=== PATIENT | male | born 1995 | race African-American/Black ===

== ENCOUNTER 2023-06-11 20:16 | Emergency (ER) | payer BC, SELFPAY ==
--- NOTE | ~2023-06-11 | US_ITS ---
EXAMINATION: US scrotum doppler DATE: 06/11/2023 21:38 INDICATION: Right testicular pain and swelling TECHNIQUE: Testicular sonogram utilizing grayscale and Doppler COMPARISON: None. FINDINGS: The right testis measures 4.8 x 2.2 x 3.1 cm. The left testis measures 4.4 x 2.6 x 2.9 cm. There are multiple punctate calcifications in the testicles. There is a right inguinal hernia contain ing fat and bowel extending into the scrotum. There is a 2.9 x 1.5 x 2.0 cm fluid collection of the r ight inguinal region with a tract to the skin There is normal vascular flow to both testes. The right epididymis is normal with normal vascular flow. The left epididymis is normal with normal vascular f low. There is no varicocele or hydrocele. IMPRESSION: 1. Small subcutaneous abscess of the right inguinal region with a tract to the skin. 2. Large right internal hernia containing fat and bowel extending into the scrotum. Reviewed, dictated and finalized at location F. IMPRESSION: 1. Small subcutaneous abscess of the right inguinal region with a tract to the skin. 2. Large right internal hernia containing fat and bowel extending into the scro santos.
[2023-06-11 20:18] VITALS: BP 150/79; PULSE 82; RESP 14; TEMP 36.6; O2SAT 100
[2023-06-11 22:09] LABS: Appearance Urine Clear (Clear); Bacteria Urine None Seen /hpf; Bilirubin Urine Negative (Negative); Blood Urine Negative (Negative); Color Urine Yellow (Yellow); Glucose Urine UA Negative (Negative); Ketones Urine Negative (Negative); Leukocyte Esterase Ur 2+ LEU/UL (Negative); Nitrate Urine Negative (Negative); Non Pathogenic Casts 0-2; Protein Urine Negative (Negative); RBC Urine 0-2 /hpf (0-2); Specific Grav Ur 1.009 (1.001-1.035); Squamous Epithelial Cell Urine None seen /hpf (Few); Urobilinogen Urine 0.2 mg/dL (<2.0)
[2023-06-11 22:14] LABS: Add Urine Microscopic? YES
[2023-06-11 23:15] VITALS: BP 148/98; PULSE 74; RESP 18; TEMP 36.7; O2SAT 100
[2023-06-11] MEDS: LIDO 1%/EPINEPHRINE 1:100,000 20 ML VIAL INFILTRATE (23:31)
[2023-06-11] MEDS: Please add drug allergy info to patient profile. 1 EACH XX (23:32)
--- NOTE | 2023-06-11 23:32 | ED.SKABFB ---
HPI - Skin/Abscess/Foreign Bdy General Chief complaint: Skin/Abscess/Foreign Body Stated complaint: lump on testicle Time Seen by Provider: 06/11/23 21:04 Source: patient Mode of arrival: ambulatory Limitations: no limitations History of Present Illness HPI narrative: 28-year-old male presents today with complaints of a lump to his right groin. Patient states he noted it yesterday and has gotten bigger today. Denies any fever, body aches, chills. Denies any dysuria, testicle pain, painful ejection. Related Data Allergies Allergy/AdvReac Type Severity Reaction Status Date / Time No Known Allergies Allergy Verified 06/11/23 23:32 Review of Systems Review of Systems: All systems reviewed & are unremarkable except as noted in HPI and below Exam Const: General: cooperative, healthy appearing, comfortable, no acute distress and well developed Orientation/consciousness: patient oriented x3 HENMT: Head: normal to inspection Eyes: General: appearance normal, both eyes and all related structures Resp: Effort & Inspection: normal respiratory effort and able to speak in complete sentences Auscultation: clear to auscultation bilaterally Cardio: Rate: regular rate Rhythm: regular rhythm Heart sounds: S1 normal heart sound present and S2 normal heart sound present Skin: Other: Right groin with approximate 1-1/2 cm diameter abscess. Not fluctuant. No erythema noted. Neuro: General: patient oriented x3 Course Vital Signs Vital signs: Vital Signs Temperature 98 F 06/11/23 20:18 Pulse Rate 82 06/11/23 20:18 Respiratory Rate 14 06/11/23 20:18 Blood Pressure 150/79 H 06/11/23 20:18 Pulse Oximetry 100 06/11/23 20:18 Oxygen Delivery Room Air 06/11/23 20:18 Temperature 98.1 F 06/11/23 23:15 Pulse Rate 74 06/11/23 23:15 Respiratory Rate 18 06/11/23 23:15 Blood Pressure 148/98 H 06/11/23 23:15 Pulse Oximetry 100 06/11/23 23:15 Oxygen Delivery Room Air 06/11/23 20:18 Procedures Abscess I/D other: Date of Incision: 06/11/23 Time of Incision: 23:15 Side (if applicable): right Sedation/analgesia: none Local Anesthetic: lidocaine 1% and with epi Amount of anesthesia used (mL): 1 Technique: incised with #11 blade Amount of fluid expressed (mL): 5 Irrigation: Yes Packing used?: none I&D Results: Pus Abcess I&D Additional Comments: 1cm incision made with 11 blade. foul smelling purulent drainage. deloculated and irrigated. patient tolerated well. MDM - Skin/Abscess/Foreign Bdy MDM Narrative Medical decision making narrative: 28-year-old male HPI as noted. Work-up to include urinalysis, ultrasound of the scrotum, chlamydia/gonorrhea. Ultrasound noted with small subcutaneous abscess of the right inguinal region with a tract to the skin. Also noted is a right internal hernia. Patient denies any testicle pain but area of pain is where the abscess is noted. Abscess drained without difficulty and as noted in chart. Patient tolerated well. Discharge home with antibiotics and follow-up with primary care. Differential Diagnosis Differential diagnosis: Likely abscess of skin or subcutaneous tissue, cellulitis and other (Hernia, testicular torsion, epididymitis, cystocele) Medical Records Attestation: I reviewed the patient's medical records. Lab Data Attestation: I reviewed the patient's lab results. Labs: Lab Results 06/11/23 Range/Units 21:49 Urine Color Yellow (Yellow) Urine Appearance Clear (Clear) Urine pH 8.0 (5.0-9.0) Ur Specific [place] 1.009 (1.001-1.035) Urine Protein Negative (Negative) mg/dL Urine Glucose (UA) Negative (Negative) mg/dL Urine Ketones Negative (Negative) mg/dL Ur Blood (Man) Negative (Negative) Urine Nitrate Negative (Negative) Urine Bilirubin Negative (Negative) Urine Urobilinogen 0.2 (<2.0) mg/dL Leukocyte Esterase Rfl 2+ H
[2023-06-11] MEDS: SULFAMETHOXAZOLE/TRIMETHOPRIM 800/160 MG DS TABLET 1 TAB PO (23:42)
--- NOTE | 2023-06-11 23:54 | PC.NURSE ---
pt came to Room 2 at 23:10 from team 2. charge gave this RN report.
== END 2023-06-11 23:50 | disposition home or self-care (01) ==
PROVIDERS: Emergency Medicine; Emergency Provider Nurse Practitioner Family
DX: L02.214 Cutaneous abscess of groin (principal); K44.9 Diaphragmatic hernia without obstruction or gangrene
CPT/HCPCS: 10060; 76870; 81001; 87086; 87491; 87591; 93976; 99284; A9270